=== PATIENT | female | born 1970 | race Caucasian/White ===

== ENCOUNTER → 2019-09-13 16:20 | Outpatient (CLI) | payer OTHER, SELFPAY | DX: Z23 Encounter for immunization (principal) | CPT/HCPCS: 90471; 90686 ==

== ENCOUNTER → 2022-07-26 16:41 | Outpatient (CLI) | payer OTHER, MEDICAID, SELFPAY | PROVIDERS: Referring Provider Internal Medicine; Visit Provider Internal Medicine | DX: Z23 Encounter for immunization (principal) | CPT/HCPCS: 90471; 90686 ==

== ENCOUNTER → 2023-05-14 15:14 | Outpatient (CLI) | payer OTHER, MEDICAID, SELFPAY ==
[2023-05-14 15:50] LABS: Add Manual Diff / Slide Review NO; Basophils Absolute Auto 0 /uL (0-100); Basophils Percent Auto 0.9 % (0-2); Eosinophils Absolute Auto 100 /uL (0-450); Eosinophils Percent Auto 1.6 % (2-4); Hematocrit 40.5 % (36-46); Hemoglobin 13.7 g/dL (12.0-16.0); Lymphocytes Absolute Auto 1400 /uL (1100-4500); Lymphocytes Percent Auto 29.2 % (25-40); Mean Corpuscular HGB Conc 33.7 % (30-36); Mean Corpuscular Hemoglobin 27.5 PG (26-34); Mean Corpuscular Volume 81.4 fL (80-100); Monocytes Absolute Auto 400 /uL (0-900); Monocytes Percent Auto 8.7 % (3-14); Neutrophils Absolute Auto 2800 /uL (1500-7000); Neutrophils Percent Auto 59.6 % (50-75); Platelet Count 205 X10^3/uL (150-400); Red Blood Cell Count 4.98 X10^6/uL (4.0-5.2); Red Cell Distribution Width 14.5 % (11.6-14.8); White Blood Cell Count 4.7 X10^3/uL (4.5-11.0)
[2023-05-14 16:04] LABS: Alanine Aminotransferase 20 IU/L (<35); Albumin 4.5 g/dL (3.5-5.0); Albumin Globulin Ratio 1.3 (1.0-2.8); Alkaline Phosphatase 64 U/L (38-126); Aspartate Aminotransferase 29 IU/L (14-36); BUN Creatinine Ratio 14.6 (6-22); Bilirubin Total 0.5 mg/dL (0.2-1.3); Blood Urea Nitrogen 12 mg/dL (7-17); Calcium 9.2 mg/dL (8.4-10.2); Carbon Dioxide 32 mmol/L (22-32); Chloride 101 mmol/L (98-107); Estimated Glomerular Filt Rate > 60 mL/min (>60); Globulin 3.6 g/dL (1.7-4.1); Glucose 120 mg/dL (70-100); HEMOLYSIS < 15 (0-50); Potassium 3.9 mmol/L (3.4-5.1); Sodium 139 mmol/L (137-145); Total Protein 8.1 g/dL (6.3-8.2)
[2023-05-14 16:35] LABS: TSH w/ Reflex to FT4 2.94 uIU/mL (0.47-4.68)
[2023-05-15 02:57] LABS: Labcorp Hemoglobin (Hb) A1c 5.5 % (4.8-5.6)
== END ==
PROVIDERS: PCP Family Medicine; Referring Provider Family Medicine; Visit Provider Family Medicine
DX: R06.02 Shortness of breath (principal); R53.83 Other fatigue
CPT/HCPCS: 36415; 80053; 83036; 84443; 85025

== ENCOUNTER 2025-06-27 07:47 | Emergency (ER) | payer OTHER, SELFPAY ==
[2025-06-27] VITALS (10 sets, daily range): BP systolic 113–144; BP diastolic 64–84; PULSE 70–104; RESP 16; TEMP 36.7; O2SAT 88–99; BMI 23.5
[2025-06-27] MEDS: KETOROLAC 30 MG/ML VIAL 15 MG IV (10:37)
[2025-06-27 10:38] LABS: Add Manual Diff / Slide Review NO; Hematocrit 45.3 % (36-46); Hemoglobin 15.3 g/dL (12.0-16.0); Lymphocytes Absolute Auto 700 /uL (1100-4500); Mean Corpuscular HGB Conc 33.7 % (30-36); Mean Corpuscular Hemoglobin 27.4 PG (26-34); Mean Corpuscular Volume 81.5 fL (80-100); Platelet Count 267 X10^3/uL (150-400)
[2025-06-27 10:51] LABS: Alanine Aminotransferase 25 IU/L (<35); Albumin 5.1 g/dL (3.5-5.0); Albumin Globulin Ratio 1.2 (1.0-2.8); Alkaline Phosphatase 96 U/L (38-126); Blood Urea Nitrogen 9 mg/dL (7-17); Calcium 9.6 mg/dL (8.4-10.2); Carbon Dioxide 23 mmol/L (22-32); Chloride 103 mmol/L (98-107); Estimated Glomerular Filt Rate > 60 mL/min (>60); Globulin 4.2 g/dL (1.7-4.1); Glucose 124 mg/dL (70-99); HEMOLYSIS < 15 (0-50); Lipase 77 U/L (23-300); Potassium 3.8 mmol/L (3.4-5.1); Sodium 140 mmol/L (137-145); Total Protein 9.3 g/dL (6.3-8.2)
--- NOTE | 2025-06-27 11:04 | ED_ITS ---
HPI - Abdominal Pain General Chief Complaint: Urogenital-Female Stated Complaint: Rectal Bleeding, Possible kidney stone, back pain Time Seen by Provider: 06/27/25 09:55 Source: patient Mode of arrival: Ambulatory History of Present Illness HPI narrative: Patient is a 54-year-old female who does not go to doctors takes no medication presenting to day with ongoing back pain. She reports she has had chronic back pain she was supposed to have surgery in 2019 but declined. She has had kidney stones in the past she felt like she had some right-sided flank pain a couple of days ago she noticed dark urine she had no nausea or vomiting it was not radiating around to her stomach. She now has all across lower lumbar pain. She reports some constipation. She has had some blood-streaked stools ongoing for at least the last 6 months. She never had a colonoscopy refuses to get 1. She is not sure if she has hemorrhoids. She does not take anything at home for pain she did receive Toradol and reports no relief. She reports he has chronic ongoing pain in both of her legs it is not any worse she has no loss of bowel or urine. Related Data Home Medications ?Medication ?Instructions ?Recorded ?Confirmed No Known Home Medications 06/27/2506/13 Allergies Allergy/AdvReac Type Severity Reaction Status Date / Time No Known Drug Allergies Allergy Verified 06/27/25 07:45 Patient History Medical History Vitiligo Shoulder pain Chronic back pain Surgical History Anesthesia History of nephrolithotomy with removal of calculi (~07/2015) History of tubal ligation (~04/1993) Social History Smoking Status: Former smoker Smoking Status: Former smoker tobacco type: cigarettes Exam Initial Vital Signs Initial Vital Signs: Vital Signs Temperature 98.1 F 06/27/25 08:01 Pulse Rate 103 H 06/27/25 08:01 Respiratory Rate 16 06/27/25 08:01 Blood Pressure 138/71 06/27/25 08:01 Pulse Oximetry 98 06/27/25 08:01 Oxygen Delivery Method Room Air 06/27/25 08:01 GENERAL: Alert 54-year-old female sitting on edge of bed hunched over and in no acute distress. HEENT: Head atraumatic,EOMI, pupils reactive, face symmetric, moist mucous membranes CARDIOVASCULAR: Regular rate and rhythm without murmurs, rubs or gallops. RESPIRATORY: Breath sounds equal bilaterally, no wheezes rales or rhonchi. ABDOMEN: Soft, nontender. Normoactive bowel sounds all 4 quadrants. No guarding or rebound. BACK: No vertebral tenderness pain across lower lumbar area : No CVA tenderness RECTAL: Patient declined EXTREMITIES: Normal range of motion, no clubbing or edema. Neurovascularly intact NEUROLOGICAL: Alert and oriented x4.Normal gait and speech. SKIN: Warm, dry, no laceration, no petechiae, no rashes or lesions. Course Orders Ordered: ED Orders 06/27/25 09:39 Urine Microscopic Stat 06/27/25 10:20 CBC Auto Diff [Complete Blood Count AUTO DIFF] Stat CMP [Comprehensive Metabolic Panel] Stat Lipase Stat 06/27/25 11:13 CT abdomen pelvis w con Stat Discontinued Medications Hydromorphone HCl (Hydromorphone Hcl 0.5 Mg/0.5 Ml Syringe) 0.5 mg IV NOW ONE Stop: 06/27/25 11:14 Last Admin: 06/27/25 12:06 Dose: 0.5 mg Documented By: ES Ketorolac Tromethamine (Ketorolac 30 Mg/Ml Vial) 15 mg IV NOW ONE Stop: 06/27/25 09:56 Last Admin: 06/27/25 10:37 Dose: 15 mg Documented By: CLP Ondansetron HCl (Ondansetron 4 Mg/2 Ml Inj) 4 mg IV NOW PRN PRN Reason: Nausea And Vomiting Ondansetron HCl (Ondansetron 4 Mg Odt) 4 mg PO NOW PRN PRN Reason: Nausea And Vomiting Vital Signs Vital signs: Vital Signs - 8 hr 06/27/25 08:01 06/27/25 10:06 06/27/25 10:06 Temperature 98.1 F Pulse Rate 103 H 101 H Respiratory Rate 16 Blood Pressure 138/71 117/80 Pulse Oximetry 98 88 L Oxygen Delivery Method Room Air 06/27/25 10:30 06/27/25 10:30 06/27/25 11:00 Temperature Pulse Rate 104 H 96 H Respiratory Rate Blood Pressure 116/78 Pulse Oximetry 96 97 Oxygen Delivery Method 06/27/25 11:00 06/27/25 11:30 06/27/25 11:30 Temperature Pulse Rate 86 Respiratory Rate Blood Pressure 118/84 144/65 H Pulse Oximetry 97 Oxygen Delivery Method 06/27/25 11:51 06/27/25 11:51 06/27/25 12:00 Temperature Pulse Rate 84 Respiratory Rate Blood Pressure 138/76 113/73 Pulse Oximetry 99 Oxygen Delivery Method 06/27/25 12:00 06/27/25 12:30 06/27/25 12:30 Temperature Pulse Rate 89 81 Respiratory Rate Blood Pressure 120/64 Pulse Oximetry 97 98 Oxygen Delivery Method 06/27/25 13:00 06/27/25 13:00 06/27/25 13:30 Temperature Pulse Rate 76 70 Respiratory Rate Blood Pressure 120/76 Pulse Oximetry 98 93 Oxygen Delivery Method 06/27/25 13:30 Temperature Pulse Rate Respiratory Rate Blood Pressure 126/65 Pulse Oximetry Oxygen Delivery Method MDM - Abdominal Pain Lab Data 06/27/25 10:20 06/27/25 10:20 Labs: Lab Results 06/27/25 06/27/25 Range/Units 09:39 10:20 WBC 3.7 L (4.5-11.0) X10^3/uL RBC 5.56 H (4.0-5.2) X10^6/uL Hgb 15.3 (12.0-16.0) g/dL Hct 45.3 (36-46) % MCV 81.5 (80-100) fL MCH 27.4 (26-34) PG MCHC 33.7 (30-36) % RDW 14.0 (11.6-14.8) % Plt Count 267 (150-400) X10^3/uL Neut % (Auto) 69.6 (50-75) % Lymph % (Auto) 19.4 L (25-40) % [place] % (Auto) 9.4 (3-14) % Eos % (Auto) 0.6 L (2-4) % Baso % (Auto) 1.0 (0-2) % Neut # (Auto) 2600 (9711-0919) /uL Lymph # (Auto) 700 L (2253-4128) /uL [place] # (Auto) 300 (0-900) /uL Eos # (Auto) 0 (0-450) /uL Baso # (Auto) 0 (0-100) /uL Sodium 140 (137-145) mmol/L Potassium 3.8 (3.4-5.1) mmol/L Chloride 103 (98-107) mmol/L Carbon Dioxide 23 (22-32) mmol/L BUN 9 (7-17) mg/dL Creatinine 0.85 (0.52-1.04) mg/dL Estimated GFR > 60 (>60) mL/min BUN/Creatinine Ratio 10.6 (6-22) Glucose 124 H (70-99) mg/dL Calcium 9.6 (8.4-10.2) mg/dL Total Bilirubin 0.9 (0.2-1.3) mg/dL AST 29 (14-36) IU/L ALT 25 (<35) IU/L Alkaline Phosphatase 96 (38-126) U/L Total Protein 9.3 H (6.3-8.2) g/dL Albumin 5.1 H (3.5-5.0) g/dL Globulin 4.2 H (1.7-4.1) g/dL Albumin/Globulin Ratio 1.2 (1.0-2.8) Lipase 77 (23-300) U/L Urine RBC 0-1/hpf (0-5/HPF) Urine WBC 0-1/hpf (0-5/HPF) Ur Squamous Epith Cells 0-1 /hpf (0-5/HPF) Urine Bacteria Occasional (0-1) (None) Ur Culture Indicated? Cult not indicated Vol Urine Centrifuged 10ml (spun) Point of care testing: Point of Care Testing Test Results Negative Urine Dip Bedside Urine Glucose Negative Bedside Urine Bilirubin - Negative Bedside Urine Ketone + 15 Urine Specific [place] 1.010 Bedside Urine Occult Blood - Negative Bedside Urine pH 6.0 Bedside Urine Protein - Negative Bedside Urine Urobilinogen - Negative Bedside Urine Nitrite - Negative Bedside Urine Leukocytes - Negative Esterase Imaging Data CT scan - abdomen/pelvis: Radiologist's Impression: PROCEDURE: CT ABDOMEN PELVIS W CON INDICATIONS: right flank pain TECHNIQUE: After the administration of intravenous contrast, axial sections acquired from the lung bases to the pubic symphysis. Coronal and sagittal reformats were performed. For radiation dose reduction, the following was used: automated exposure control, adjustment of mA and/or kV according to patient size. COMPARISON: CT of abdomen and pelvis dated 09/01/2014. FINDINGS: Image quality: Diagnostic. Lower Chest: No significant findings. ABDOMEN: Liver: No solid mass. Gallbladder: Calcified stones are seen in dependent portion of gallbladder lumen. No gross gallbladder wall thickening. Biliary ducts: Prominent common bile duct measures up to 10 series 3, image 43. No definite calcified common bile duct stone is seen. mm in diameter proximally Pancreas: No ductal dilation. Spleen: Size is within normal limits. Adrenal Glands: No adrenal nodules. Kidneys and Ureters: No hydronephrosis. No solid mass. No complex renal cystic lesion which requires follow up. Stomach and Bowel: There is no bowel obstruction . For digestion of diffuse colonic wall thickening and distal ileal wall thickening. Appendix is not definitively identified. Sigmoid diverticulosis without CT evidence of acute diverticulitis. No abscess collection. Peritoneum: No abnormal intraperitoneal fluid. No free air. Ventral Wall: No significant ventral hernia. Abdominal Nodes: No retroperitoneal or mesenteric adenopathy by size criteria. Vessels: Aorta and inferior vena cava are normal in size. PELVIS: Pelvic Organs: Prominent bilateral gonadal vessels . Uterus and bilateral ovaries show no gross abnormalities. Bladder: No bladder wall thickening, accounting for underdistention. Pelvic Nodes: No enlarged lymph nodes. Miscellaneous: No inguinal hernias are seen. Bones: No aggressive osseous abnormality. IMPRESSION: 1. There is suggestion of distal ileal wall thickening and colonic wall thickening which may be due to under distension. Infectious or inflammatory enterocolitis cannot be excluded. No abscess collection. Sigmoid diverticulosis without CT evidence of acute diverticulitis. Appendix is not definitively identified. Developing acute appendicitis cannot be excluded. Clinical correlation is recommended. No free fluid or free air. 2. Cholelithiasis without CT evidence of acute cholecystitis. Prominence of common bile duct for patient's age, no obvious calcified common bile duct stone is seen. MRCP or ERCP can be done for further evaluation of this region. 3. Prominence of bilateral gonadal vessels which can be seen associated with clinical diagnosis of pelvic congestion syndrome. 4. No obstructing renal stones or hydronephrosis. Normal appearing partially distended urinary bladder. Dictated by: Scottie Plascencia M.D. on 06/27/2025 at 12:00 ECG Data Interpretation: MDM Narrative Medical decision making narrative: MDM CC: Back pain Complicating co-morbidities: Chronic back pain prior kidney stone Data collected from: Patient Medical records reviewed: PCP note from April 2023 is the last record Differential considered: Nephrolithiasis acute on chronic back pain low suspicion for cauda equina constipation colon cancer ulcerative colitis Crohn's disease hemorrhoid Exam documented above, pertinent findings include: No vertebral tenderness no flank pain abdomen is soft nontender Lab Test results independently reviewed as above. Pertinent findings: Mild leukopenia, WBC is 3.7 no anemia her hemoglobin is 15.3 hematocrit 45.3 platelets 267 CMP no electrolyte abnormality no EFRAIN Independently reviewed EKG as above Imaging studies independently reviewed: CT abdomen pelvis shows some distal ileal wall thickening can not exclude infectious or inflammatory colitis normal appendix cholelithiasis is noted but no acute cholecystitis Treatments: Toradol Dilaudid Re-evaluations: No pain relief after Toradol Discussion: 54-year-old female presenting today with ongoing back pain and chronic bloody stools. Bloody stools not any worse today. She is not anemic hemodynamically stable. CT shows if some ileal wall thickening strongly recommend outpatient colonoscopy or she does agree to. Abdomen is soft. She has chronic back pain no lower extremity weakness no concern for cauda equina. Urinalysis is negative no evidence of infection. She is nontender in the right upper quadrant she has hopefully lithiasis but not symptomatic at this time with normal liver enzymes and bilirubin Discharge Plan Departure Patient Disposition: Home Clinical Impression: Constipation Instructions: DI for Constipation Activity Restrictions/Additional Instructions: *You have been diagnosed with constipation *What to do: At this time I strongly encourage you to have a colonoscopy for further evaluation of your ongoing bloody stools. *Continue to take medications as directed MiraLax once daily to help with constipation *Follow up with your primary care provider in 2-3 days or call [phone] *Return to ER if you should have increasing abdominal pain back pain nausea vomiting or any new, worsening or concerning symptoms Prescriptions: No Action No Known Home Medications Referrals: Crow Rocha DO [Primary Care Provider, Family Practice] Stand Alone Forms: Patient Portal/API
--- NOTE | 2025-06-27 11:13 | DI.CT.S_ITS ---
PROCEDURE: CT ABDOMEN PELVIS W CON INDICATIONS: right flank pain TECHNIQUE: After the administration of intravenous contrast, axial sections acquired from the lung bases to the pubic symphysis. Coronal and sagittal reformats were performed. For radiation dose reduction, the following was used: automated exposure control, adjustment of mA and/or kV according to patient size. COMPARISON: CT of abdomen and pelvis dated 09/01/2014. FINDINGS: Image quality: Diagnostic. Lower Chest: No significant findings. ABDOMEN: Liver: No solid mass. Gallbladder: Calcified stones are seen in dependent portion of gallbladder lumen. No gross gallbladder wall thickening. Biliary ducts: Prominent common bile duct measures up to 10 series 3, image 43. No definite calcified common bile duct stone is seen. mm in diameter proximally Pancreas: No ductal dilation. Spleen: Size is within normal limits. Adrenal Glands: No adrenal nodules. Kidneys and Ureters: No hydronephrosis. No solid mass. No complex renal cystic lesion which requires follow up. Stomach and Bowel: There is no bowel obstruction . For digestion of diffuse colonic wall thickening and distal ileal wall thickening. Appendix is not definitively identified. Sigmoid diverticulosis without CT evidence of acute diverticulitis. No abscess collection. Peritoneum: No abnormal intraperitoneal fluid. No free air. Ventral Wall: No significant ventral hernia. Abdominal Nodes: No retroperitoneal or mesenteric adenopathy by size criteria. Vessels: Aorta and inferior vena cava are normal in size. PELVIS: Pelvic Organs: Prominent bilateral gonadal vessels . Uterus and bilateral ovaries show no gross abnormalities. Bladder: No bladder wall thickening, accounting for underdistention. Pelvic Nodes: No enlarged lymph nodes. Miscellaneous: No inguinal hernias are seen. Bones: No aggressive osseous abnormality. IMPRESSION: 1. There is suggestion of distal ileal wall thickening and colonic wall thickening which may be due to under distension. Infectious or inflammatory enterocolitis cannot be excluded. No abscess collection. Sigmoid diverticulosis without CT evidence of acute diverticulitis. Appendix is not definitively identified. Developing acute appendicitis cannot be excluded. Clinical correlation is recommended. No free fluid or free air. 2. Cholelithiasis without CT evidence of acute cholecystitis. Prominence of common bile duct for patient's age, no obvious calcified common bile duct stone is seen. MRCP or ERCP can be done for further evaluation of this region. 3. Prominence of bilateral gonadal vessels which can be seen associated with clinical diagnosis of pelvic congestion syndrome. 4. No obstructing renal stones or hydronephrosis. Normal appearing partially distended urinary bladder. Dictated by: Scottie Plascencia M.D. on 06/27/2025 at 12:00 Approved by: Scottie Plascencia M.D. on 06/27/2025 at 12:07
[2025-06-27 12:09] LABS: Culture Indicated Urine Cult Not Indicated
== END 2025-06-27 13:41 | disposition home or self-care (01) ==
PROVIDERS: Emergency Provider Emergency Medicine; PCP Family Medicine
DX: K59.00 Constipation, unspecified (principal); M54.50 Low back pain, unspecified; Z87.442 Personal history of urinary calculi
CPT/HCPCS: 36415; 74177; 80053; 81003; 81015; 81025; 83690; 85025; 96374; 96375; 99284; J1171; J1885; Q9967

== ENCOUNTER → 2025-07-01 13:00 | Outpatient (CLI) | payer OTHER, SELFPAY | PROVIDERS: PCP Family Medicine; Visit Provider Family Medicine | DX: R10.9 Unspecified abdominal pain (principal); R39.89 Other symptoms and signs involving the genitourinary system; K62.5 Hemorrhage of anus and rectum; K62.89 Other specified diseases of anus and rectum; K83.8 Other specified diseases of biliary tract | CPT/HCPCS: 87086 ==

== ENCOUNTER → 2025-07-01 13:37 | Outpatient (CLI) | payer OTHER, SELFPAY ==
--- NOTE | 2025-07-01 13:38 | DI.RAD.S_ITS ---
PROCEDURE: XR LUMBAR SPINE 2-3V INDICATIONS: low back apin TECHNIQUE: 3 views of the lumbar spine were acquired. COMPARISON: None. FINDINGS: Bones: Severe multilevel degenerative disc disease , most pronounced at L2-L3 and L1-L2. Vertebral body heights maintained. No fracture. No spondylolisthesis. Soft tissues: Overlying bowel gas pattern is normal. No suspicious soft tissue calcifications. IMPRESSION: Severe degenerative disc disease. Dictated by: James Kowalski M.D. on 07/01/2025 at 14:25 Approved by: James Kowalski M.D. on 07/01/2025 at 14:26
--- NOTE | 2025-07-01 13:38 | DI.RAD.S_ITS ---
PROCEDURE: XR HIP W PEL IF DONE LT 2V INDICATIONS: low back apin TECHNIQUE: AP view of the pelvis and lateral view of the left hip COMPARISON: None. FINDINGS: Bones: No fractures or dislocations. No suspicious bony lesions. The visualized pelvic ring appears intact. Soft tissues: No suspicious soft tissue calcifications or masses. IMPRESSION: No acute bony abnormality. Dictated by: James Kowalski M.D. on 07/01/2025 at 14:24 Approved by: James Kowalski M.D. on 07/01/2025 at 14:25
== END ==
PROVIDERS: PCP Family Medicine; Referring Provider Family Medicine; Visit Provider Family Medicine
DX: M51.360 Other intervertebral disc degeneration, lumbar region with discogenic back pain only (principal); K62.5 Hemorrhage of anus and rectum; M25.552 Pain in left hip; K83.8 Other specified diseases of biliary tract; K62.89 Other specified diseases of anus and rectum; R10.9 Unspecified abdominal pain; R39.89 Other symptoms and signs involving the genitourinary system
CPT/HCPCS: 72100; 73502; 87086

== ENCOUNTER → 2025-07-13 16:58 | Outpatient (CLI) | payer OTHER, SELFPAY ==
--- NOTE | 2025-07-13 16:59 | DI.MRI.S_ITS ---
PROCEDURE: MR LUMBAR SPINE WO CON INDICATIONS: lower back and hip pain TECHNIQUE: Noncontrast sagittal T1 spin echo and T2 fast echo, sagittal STIR, and T2 fast spin echo through the lumbar spine. In cases with scoliosis, additional coronal T2 fast spin echo may be performed. COMPARISON: None. FINDINGS: Image quality: Excellent. Alignment and Curvature: There is normal bony alignment. Bone Marrow: Degenerative endplate changes are present. Marrow is of normal overall signal. No acute vertebral body compression fractures. Spinal Cord: Conus medullaris terminates at the L1-L2 level. Visualized cord demonstrates normal signal and size. Paraspinous Soft Tissues: No paravertebral masses. T12-L1: Disc desiccation and mild disc bulge. No central canal or neural foraminal stenosis. L1-L2: Disc desiccation is severe height loss. Minimal disc bulge. Facet arthropathy. No central canal or neural foraminal stenosis. L2-L3: Disc desiccation and moderate height loss. Mild disc bulge. Facet arthropathy. No central canal stenosis. No significant neural foraminal stenosis. L3-L4: Disc desiccation and mild disc bulge. Facet arthropathy. No central canal stenosis. No significant neural foraminal stenosis. L4-L5: Disc desiccation and mild disc bulge with superimposed small central disc protrusion and posterior annular tear. No significant central canal or neural foraminal stenosis. L5-S1: Disc desiccation and mild disc bulge with posterior annular tear. No central canal stenosis. Mild left and no right neural foraminal stenosis. IMPRESSION: Mild multilevel degenerative changes of the lumbar spine as described above. Dictated by: Rogers Eaton M.D. on 07/14/2025 at 13:02 Approved by: Rgoers Eaton M.D. on 07/14/2025 at 13:07
== END ==
PROVIDERS: PCP Family Medicine; Referring Provider Family Medicine; Visit Provider Family Medicine
DX: M47.816 Spondylosis without myelopathy or radiculopathy, lumbar region (principal); M54.50 Low back pain, unspecified; M25.559 Pain in unspecified hip
CPT/HCPCS: 72148

== ENCOUNTER → 2025-07-15 16:46 | Outpatient (CLI) | payer OTHER, SELFPAY ==
--- NOTE | 2025-07-15 16:48 | DI.MRI.S_ITS ---
PROCEDURE: MR ABDOMEN WO CON INDICATIONS: Prominence of common bile duct for patient's age TECHNIQUE: Coronal HASTE through the abdomen, axial 2-D FLASH in- and [id number], and breath-hold T2 FSE with fat saturation through the biliary system and pancreas. Oblique coronal and axial thin-slice HASTE, radial thick-slab HASTE centered on the extrahepatic bile ducts. Intravenous secretin: Not requested. COMPARISON: [facility], CT, CT ABDOMEN PELVIS W CON, 06/27/2025, 11:47. FINDINGS: Image quality: Diagnostic. Gallbladder: Cholelithiasis with borderline focal wall thickening along the anterior margin . Trace pericholecystic fluid. Biliary ducts: Wall mild extrahepatic biliary dilation, measuring up to 9 millimeter. There is layering debris within the common bile duct (series 4, image 31). Pancreas: No ductal dilation. OTHER: Lung bases: Unremarkable. Liver: No solid mass. Spleen: Size is within normal limits. Adrenal Glands: No adrenal nodules. Kidneys and Ureters: No hydronephrosis. No solid mass. No complex renal cystic lesion which requires follow up. Stomach and Bowel: Normal colonic caliber, without significant wall thickening. Peritoneum: No abnormal intraperitoneal fluid. No free air. Ventral Wall: No hernia. Abdominal Nodes: No retroperitoneal or mesenteric adenopathy by size criteria. Vessels: Aorta and inferior vena cava are normal in size. Bones: No aggressive osseous abnormality. IMPRESSION: Cholelithiasis with focal gallbladder wall thickening along the anterior margin and trace pericholecystic edema. Findings raise a concern for acute cholecystitis. Correlate with right upper quadrant pain. Layering debris within the common bile duct, which is dilated up to 9 millimeter. This layering debris may represent small stones versus concentrated bile. Dictated by: Julito Betts M.D. on 07/18/2025 at 13:34 Approved by: Julito Betts M.D. on 07/18/2025 at 13:37
== END ==
LOC: MRI 16:47
PROVIDERS: PCP Family Medicine; Referring Provider Family Medicine; Visit Provider Family Medicine
DX: K83.8 Other specified diseases of biliary tract (principal); K80.20 Calculus of gallbladder without cholecystitis without obstruction; R10.84 Generalized abdominal pain; R93.89 Abnormal findings on diagnostic imaging of other specified body structures
CPT/HCPCS: 74181

== ENCOUNTER 2025-09-07 09:07 | Day surgery (SDC) | payer OTHER, SELFPAY ==
[2025-08-24 09:36] VITALS: BMI 24.9
[2025-09-07] VITALS (11 sets, daily range): BP systolic 111–158; BP diastolic 63–88; PULSE 74–102; RESP 11–23; TEMP 36.2–36.9; O2SAT 96–100
--- NOTE | 2025-09-07 | PATH_ITS ---
[facility] Accession Number: [id number] No. of containers..01 Tissue . 01 Material submitted: . gallbladder - GALLBLADDER, CHOLECYSTECTOMY . 01 Diagnosis: GALLBLADDER, CHOLECYSTECTOMY: Chronic cholecystitis with cholelithiasis. No dysplasia or malignancy identified. . [facility] 09/16/2025 152 Local . 01 Electronically signed: . Mark Mccarty MD, Pathologist NPI- [id number] . 01 Gross description: . Received in formalin with two patient identifiers, and gallbladder is a 10.2 x 3.5 x 3.4 cm intact gallbladder. The stapled cystic duct margin is inked blue. A lymph node is not grossly identified. The serosa is purple-brown and smooth with scattered pinpoint hemorrhage. The mucosa is green-tyson, velvety, and focally hemorrhagic. The wall is 0.3-0.6 cm thick. The lumen contains green, viscous bile. There are innumerable yellow-green, multifaceted calculi ranging from 0.5-2.3 cm. Ruby On Rails Engineer sections with cystic duct margin en face and gallbladder wall were submitted in A1. ([id number]) /MRV 09/16/2025 1526 Local . 01 Pathologist provided ICD-10: K80.10 . 01 CPT . 747550 Specimen Comment: A courtesy copy of this report has been sent to [phone] Performed at: [address] [id number] MD Mark Mccarty MD Phone: [phone]
--- NOTE | 2025-09-07 | DI.RAD.S_ITS ---
PROCEDURE: XR CHOLANGIOGRAM OPERATIVE INDICATIONS: Lap Luz Marina with IOC COMPARISON: None. FINDINGS: Biliary ducts: The surgeon injected contrast into the biliary ducts after cannulation of the cystic duct stump. Visualized intra- and extrahepatic bile ducts are normal in caliber, without strictures. No intraluminal filling defects to suggest retained ductal stones or sludge. No evidence for iatrogenic ductal injury. Duodenum: Contrast flows promptly through the sphincter of Oddi into the duodenum, which appears normal in caliber. IMPRESSION: Normal operative cholangiogram. Dictated by: Jose C Marie M.D. on 09/08/2025 at 10:01 Approved by: Jose C Marie M.D. on 09/08/2025 at 10:02
[2025-09-07] MEDS: ACETAMINOPHEN 325 MG TABLET 975 MG PO (09:33)
[2025-09-07] MEDS: LACTATED RINGERS 1,000 ML 42 ML IV (09:34)
[2025-09-07] MEDS: GABAPENTIN 300 MG CAPSULE PO (09:34)
[2025-09-07] MEDS: MELOXICAM 7.5 MG TABLET 15 MG PO (09:34)
[2025-09-07] MEDS: FAMOTIDINE 20 MG/2 ML VIAL IV (09:34)
[2025-09-07] MEDS: SCOPOLAMINE 1 PATCH TOP (09:34)
--- NOTE | 2025-09-07 10:12 | PM.HP.IH.1 ---
History of Present Illness History of Present Illness Date Patient Seen: 09/07/25 Time Patient Seen: 10:12 Chief complaint: [facility] [place]ative: Denisse is a 55-year-old woman who presented to the clinic in July with abdominal pain. She had a CT scan which showed cholelithiasis and a prominent common duct. She then had an MRCP which showed cholelithiasis and layering debris in the common duct which may represent small stones or thick bile. ON LICENSE OF [facility] Medical History Vitiligo Shoulder pain Chronic back pain Surgical History Anesthesia History of nephrolithotomy with removal of calculi (~07/2015) History of tubal ligation (~04/1993) Social History Smoking Status: Former smoker Meds Home Medications and Allergies Home Medications ?Medication ?Instructions ?Recorded ?Confirmed ?Type No Known Home Medications 08/04/25 09/07/25 History Allergies Allergy/AdvReac Type Severity Reaction Status Date / Time No Known Drug Allergies Allergy Verified 09/07/25 09:32 Exam Vital Signs (past 8 hours): - 09/07/25 09:53 Temperature 98.5 F Pulse Rate 80 Respiratory Rate 17 Blood Pressure 156/78 H Pulse Oximetry 98 Oxygen Delivery Method Room Air Oxygen Delivery Method Room Air Const General: No acute distress Assessment & Plan Assessment and plan (1) Cholelithiasis: Qualifiers: Cholelithiasis location: gallbladder and bile duct Cholecystitis presence: without cholecystitis Biliary obstruction: without biliary obstruction Qualified Code(s): K80.70 - Calculus of gallbladder and bile duct without cholecystitis without obstruction Status: Acute Plan Laparoscopic cholecystectomy with intra-operative cholangiogram with possible common duct exploration. If she has common duct stones that cannot be removed with common duct exploration we would have to arrange for ERCP at another facility. Time-Based Coding :: [TOTAL MINUTES] spent with patient and on the chart (including review of chart, obtaining history, exam, reviewing outside data, placing orders, documenting exam and treatment plan, and counseling patient) on [DATE]. 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
--- NOTE | 2025-09-07 10:45 | SUR.OPER ---
Supine on padded OR bed, head on pillow, right arm padded and tucked, left arm secured on padded arm board at <90 degrees abduction, legs uncrossed, safety belt at thigh, tape over blanket over lower legs. Footboard
--- NOTE | 2025-09-07 12:32 | PM.OP.1 ---
Operative Date/Time/Diagnoses Date of procedure: 09/07/25 Time of procedure: 12:32 Pre-op diagnosis: Symptomatic cholelithiasis Post-op diagnosis: other (Symptomatic cholelithiasis and choledocholithiasis) Procedure & Clinicians Procedure: Laparoscopic cholecystectomy with intraoperative cholangiogram Common bile duct exploration Same procedure(s) as scheduled: Yes Surgeon: Yassine Baptiste Assisted?: Yes Filler Shredder: Brian Ramos Anesthesia Type: General Operative Notes Findings: Nonobstructing distal common bile duct stone on cholangiogram Applied: none Estimated Blood Loss (mL): 12 Procedure in detail: The patient was given preoperative antibiotic. The patient was brought to the operating room, placed on the table in the supine position. General endotracheal anesthesia was induced. The abdomen was prepped and draped. A time-out was performed. We made a 1 cm infraumbilical incision. We dissected down to the base of the umbilical stalk using cautery. We grasped the umbilical stalk with a Sravanthi clamp to elevate the abdominal wall. We scored the fascia in the midline with cautery 1 cm. We pierced the peritoneum with a Peon clamp. The Leatha port was placed and the abdomen was insufflated to 15 mmHg. A 5 mm 30 degree laparoscopic was inserted. There was no evidence of any injury from the entry. Next, we placed 5 mm ports in the subxiphoid position and right upper quadrant at the midclavicular line and anterior axillary line. The patient was then positioned in reverse Trendelenburg and the table was tilted to the left. The gallbladder was grasped at the dome and retracted cephalad. The infundibulum was densely adherent to the duodenum. The duodenum was carefully dissected off the gallbladder using a combination of sharp and blunt dissection. We then dissected the cystic structures with a combination of hook cautery and blunt dissection. A cholangiogram was performed using the 6 Maltese ureteral catheter and the Ness clamp. The cholangiogram demonstrated some flow of contrast into the duodenum but there was a distal common duct filling defect. At this point we administered 1 mg of glucagon and waited 5 minutes. We flushed saline through the biliary tract and repeated the cholangiogram. There still appeared to be a filling defect in the distal common bile duct. The ureteral catheter was advanced under fluoroscopy to the distal common bile duct and would not easily pass into the duodenum. We then passed a 0.35 mm glidewire past the obstruction into the duodenum. The ureteral catheter was then advanced over the wire into the duodenum without resistance. The seemed to clear the obstruction. Finally a completion cholangiogram was performed which showed good flow into the duodenum with no common bile duct filling defects. We then placed hemoclips on the cystic duct and artery and divided the cystic duct and artery sharply between the clips. The infundibulum of the gallbladder was still very closely adherent to the hepatic duct and was carefully dissected away from the hepatic duct with blunt dissection. There was a lymph node that was dissected off the gallbladder and left with the bridger hepatis. The gallbladder was then dissected off the liver and placed in a specimen retrieval bag. We irrigated the right upper quadrant and all the aspirate returned clear. We then removed the 5 mm ports under direct vision we removed the [place] port. We then injected some local into the fascia and closed the fascia with 3 interrupted 0 Vicryl sutures. The skin incisions were closed with 4 Monocryl and Steri-Strips were applied. Band-Aids were applied over the Steri-Strips. Specimen: Gallbladder and contents Complications: none Post-operative Condition: stable Disposition: PACU
[2025-09-07] MEDS: ONDANSETRON 4 MG/2 ML INJ IV (13:05)
[2025-09-07] MEDS: KETOROLAC 30 MG/ML VIAL 15 MG IV (13:57)
[2025-09-07] MEDS: METOCLOPRAMIDE 10 MG/2 ML INJ IV (13:59)
[2025-09-07] MEDS: hydrOXYzine 50 MG/ML INJ 25 MG IM (14:00)
== END 2025-09-07 16:00 | disposition home or self-care (01) ==
PROVIDERS: PCP Family Medicine; Referring Provider Surgery; Visit Provider Surgery
PROC: 0FT44ZZ Resection of Gallbladder, Percutaneous Endoscopic Approach (ICD-10-PCS; CPT 47563; principal; 2025-09-07 10:45)
DX: K80.64 Calculus of gallbladder and bile duct with chronic cholecystitis without obstruction (principal); Z87.891 Personal history of nicotine dependence
CPT/HCPCS: 47564; 74300; J0689; J1100; J1171; J1885; J2250; J2405; J2704; J2765; J3010; J3410; J7120; Q9967

== ENCOUNTER 2025-09-20 18:58 | Emergency (ER) | payer OTHER, SELFPAY ==
[2025-09-20] VITALS (11 sets, daily range): BP systolic 119–158; BP diastolic 65–103; PULSE 87–134; RESP 13–24; TEMP 37.1; O2SAT 88–99; BMI 25.8
[2025-09-20] MEDS: MORPHINE 4 MG/ML INJ IV (19:42)
[2025-09-20] MEDS: SODIUM CHLORIDE 0.9% 1,000 ML 1000 ML IV (19:42)
[2025-09-20] MEDS: ONDANSETRON 4 MG/2 ML INJ IV (19:42)
[2025-09-20 19:55] LABS: Alanine Aminotransferase 20 IU/L (<35); Albumin 4.8 g/dL (3.5-5.0); Albumin Globulin Ratio 1.2 (1.0-2.8); Alkaline Phosphatase 95 U/L (38-126); Blood Urea Nitrogen 7 mg/dL (7-17); Calcium 9.4 mg/dL (8.4-10.2); Carbon Dioxide 25 mmol/L (22-32); Chloride 104 mmol/L (98-107); Estimated Glomerular Filt Rate > 60 mL/min (>60); Globulin 3.9 g/dL (1.7-4.1); Glucose 157 mg/dL (70-99); HEMOLYSIS < 15 (0-50); Lipase 127 U/L (23-300); Potassium 3.0 mmol/L (3.4-5.1); Sodium 140 mmol/L (137-145); Total Protein 8.7 g/dL (6.3-8.2)
[2025-09-20 19:56] LABS: Lactate (Lactic Acid) 1.8 mmol/L (0.7-2.1)
[2025-09-20 19:57] LABS: Add Manual Diff / Slide Review NO; Hematocrit 40.5 % (36-46); Hemoglobin 13.7 g/dL (12.0-16.0); Lymphocytes Absolute Auto 2900 /uL (1100-4500); Mean Corpuscular HGB Conc 33.8 % (30-36); Mean Corpuscular Hemoglobin 26.9 PG (26-34); Mean Corpuscular Volume 79.6 fL (80-100); Platelet Count 310 X10^3/uL (150-400)
--- NOTE | 2025-09-20 20:45 | ED.ABDPAIN ---
HPI - Abdominal Pain General Chief Complaint: Abdominal Pain Stated Complaint: post surgery, stomach pn, chills, infection? Time Seen by Provider: 09/20/25 19:19 Source: patient Mode of arrival: Ambulatory History of Present Illness HPI narrative: 55-year-old female patient with a history of anxiety/depression/PTSD, chronic back pain and intermittent lower leg problems with numbness and pain. She underwent laparoscopic cholecystectomy on 09/07/2025 and says that since then she has had ongoing intermittent abdominal pain chills, nausea and yellow diarrhea. She has follow up with General surgery in 2 days. Related Data Home Medications ?Medication ?Instructions ?Recorded ?Confirmed No Known Home Medications 08/04/25 09/08/25 Previous Rx's ?Medication ?Instructions ?Recorded hydrocodone 5 mg-acetaminophen 325 1 tab PO Q8H PRN pain #10 tabs 09/07/25 mg tablet Allergies Allergy/AdvReac Type Severity Reaction Status Date / Time No Known Drug Allergies Allergy Verified 09/20/25 19:23 Review of Systems Review of Systems ROS Unobtainable: All systems reviewed & are unremarkable except as noted in HPI and below Gastrointestinal Gastrointestinal: Reports as per HPI Psychiatric Psychiatric: Reports as per HPI Patient History Medical History (Updated 09/20/25 @ 20:56 by Ari Chen MD) Vitiligo Chronic back pain Surgical History Anesthesia History of nephrolithotomy with removal of calculi (~07/2015) History of tubal ligation (~04/1993) tobacco type: cigarettes Exam Narrative Exam Narrative: General: Alert and conversant. [id number] distress. Appears well nourished and well hydrated Craniofacial: No evidence of trauma. Nontender and no swelling. Eyes: PERRLA EOMI conjunctiva clear HEENT: Tragus, pinnae nontender. Tympanic membranes normal appearance. Oropharynx clear with no swelling, exudate or asymmetry of the pharynx. Nares clear. No sinus tenderness Neck: No tenderness or adenopathy. No meningismus. No JVD Lungs: Clear to auscultation with good air movement. No wheezing, rales or rhonchi. No respiratory distress Cardiac: Tachycardia with regular rhythm and with no appreciable murmur or gallop Abdomen: Soft, mild diffuse tenderness with no rebound or guarding. With no distention or masses. Normal bowel sounds. Musculoskeletal: Exam of the extremities, axial spine and ribcage reveals no deformity, bony tenderness or swelling. Range of motion intact Neuro: Alert and oriented. Cranial nerves, motor, sensory and cerebellar all grossly intact. No focal deficit Skin: Warm and normal color. No rashes Psychological: Normal affect and interaction. No evidence of delusion or psychosis. Normal mood. Initial Vital Signs Initial Vital Signs: Vital Signs Temperature 98.8 F 09/20/25 19:16 Pulse Rate 134 H 09/20/25 19:16 Respiratory Rate 20 09/20/25 19:16 Blood Pressure 156/103 H 09/20/25 19:16 Pulse Oximetry 98 09/20/25 19:16 Oxygen Delivery Method Room Air 09/20/25 19:16 Course Orders Ordered: ED Orders 09/20/25 19:30 CBC Auto Diff [Complete Blood Count AUTO DIFF] Stat CMP [Comprehensive Metabolic Panel] Stat Lactate (Lactic Acid) Stat Lipase Stat 09/20/25 20:30 Urinalysis and Microscopic Stat Discontinued Medications Hydrocodone Bitart/Acetaminophen (Hydrocodone/Acet 5/325 Prepack) 1 bottle MISC DIRECTED ONE Stop: 09/20/25 20:55 Last Admin: 09/20/25 21:25 Dose: 1 bottle Documented By: ANA Sodium Chloride (Normal Saline 0.9%) 1,000 mls @ 1,000 mls/hr IV BOLUS ONE Stop: 09/20/25 20:22 Last Infusion: 09/20/25 21:10 Dose: Infused Documented By: Admin: 09/20/25 19:42 Dose: 1,000 mls/hr Documented By: SHAKIRA Morphine Sulfate (Morphine 4 Mg/Ml Inj) 4 mg IV NOW ONE Stop: 09/20/25 19:37 Last Admin: 09/20/25 19:42 Dose: 4 mg Documented By: SHAKIRA Ondansetron HCl (Ondansetron 4 Mg/2 Ml Inj) 4 mg IV NOW ONE Stop: 09/20/25 19:24 Last Admin: 09/20/25 19:42 Dose: 4 mg Documented By: SHAKIRA Vital Signs Vital signs: Vital Signs - 8 hr 09/20/25 19:16 09/20/25 19:26 09/20/25 19:30 Temperature 98.8 F Pulse Rate 134 H 103 H 103 H Respiratory Rate 20 14 21 Blood Pressure 156/103 H Pulse Oximetry 98 98 97 Oxygen Delivery Method Room Air 09/20/25 19:40 09/20/25 19:40 09/20/25 20:00 Temperature Pulse Rate 117 H 100 H Respiratory Rate 16 18 Blood Pressure 158/74 H Pulse Oximetry 96 99 Oxygen Delivery Method 09/20/25 20:00 09/20/25 20:30 09/20/25 20:32 Temperature Pulse Rate 110 H 101 H Respiratory Rate 13 Blood Pressure 134/65 Pulse Oximetry 96 97 Oxygen Delivery Method 09/20/25 20:32 09/20/25 20:36 09/20/25 20:36 Temperature Pulse Rate 99 H Respiratory Rate 24 Blood Pressure 136/72 119/77 Pulse Oximetry 96 Oxygen Delivery Method 09/20/25 21:00 09/20/25 21:00 09/20/25 21:10 Temperature Pulse Rate 87 Respiratory Rate 22 Blood Pressure 129/75 Pulse Oximetry 93 88 L Oxygen Delivery Method Room Air Room Air 09/20/25 21:27 Temperature Pulse Rate 105 H Respiratory Rate 22 Blood Pressure 129/75 Pulse Oximetry 98 Oxygen Delivery Method Room Air MDM - Abdominal Pain Lab Data Attestation: I reviewed the patient's lab results. Lab results narrative: CBC and CMP unremarkable other than potassium 3.0. 09/20/25 19:30 09/20/25 19:30 Labs: Lab Results 09/20/25 09/20/25 Range/Units 19:30 20:30 WBC 7.0 (4.5-11.0) X10^3/uL RBC 5.09 (4.0-5.2) X10^6/uL Hgb 13.7 (12.0-16.0) g/dL Hct 40.5 (36-46) % MCV 79.6 L (80-100) fL MCH 26.9 (26-34) PG MCHC 33.8 (30-36) % RDW 14.1 (11.6-14.8) % Plt Count 310 (150-400) X10^3/uL Neut % (Auto) 41.7 L (50-75) % Lymph % (Auto) 41.4 H (25-40) % [place] % (Auto) 11.2 (3-14) % Eos % (Auto) 4.6 H (2-4) % Baso % (Auto) 1.1 (0-2) % Neut # (Auto) 2900 (6755-9890) /uL Lymph # (Auto) 2900 (9295-0272) /uL [place] # (Auto) 800 (0-900) /uL Eos # (Auto) 300 (0-450) /uL Baso # (Auto) 100 (0-100) /uL Sodium 140 (137-145) mmol/L Potassium 3.0 L (3.4-5.1) mmol/L Chloride 104 (98-107) mmol/L Carbon Dioxide 25 (22-32) mmol/L BUN 7 (7-17) mg/dL Creatinine 0.86 (0.52-1.04) mg/dL Estimated GFR > 60 (>60) mL/min BUN/Creatinine Ratio 8.1 (6-22) Glucose 157 H (70-99) mg/dL Lactate 1.8 (0.7-2.1) mmol/L Calcium 9.4 (8.4-10.2) mg/dL Total Bilirubin 0.4 (0.2-1.3) mg/dL AST 22 (14-36) IU/L ALT 20 (<35) IU/L Alkaline Phosphatase 95 (38-126) U/L Total Protein 8.7 H (6.3-8.2) g/dL Albumin 4.8 (3.5-5.0) g/dL Globulin 3.9 (1.7-4.1) g/dL Albumin/Globulin Ratio 1.2 (1.0-2.8) Lipase 127 (23-300) U/L Urine Color Yellow Urine Appearance Clear Urine pH 5.5 (4.5-8.0) Ur Specific [place] <=1.005 (1.000-1.035) Urine Protein Negative (Negative) Urine Glucose (UA) Negative (Negative) g/dL Urine Ketones Negative (NEGATIVE) Urine Occult Blood Negative (Negative) Urine Nitrate Negative (Negative) Urine Bilirubin Negative (NEGATIVE) Urine Urobilinogen 0.2 (0.2) E.U./dL Ur Leukocyte Esterase Negative (NEGATIVE) Urine RBC None seen (0-5/HPF) Urine WBC 0-1/hpf (0-5/HPF) Ur Squamous Epith Cells 0-1 /hpf (0-5/HPF) Urine Bacteria Occasional (0-1) (None) Ur Culture Indicated? Cult not indicated Vol Urine Centrifuged 10ml (spun) MDM Narrative Medical decision making narrative: Patient has postoperative abdominal discomfort off and on for 2 weeks but has not seen her physician. She came in tachycardic and anxious it is improved with IV fluids and pain medication. Lab work is unremarkable and her exam had a soft abdomen with no rebound or guarding. I do not believe she needs imaging based on exam and lab work. I believe that is some of her symptoms are exacerbated or aggravated by her underlying anxiety. She has improved in the ER. I was willing to give her a take-home pack of hydrocodone. She is instructed to hydrate and monitor symptoms and follow up with her surgeon which will be in 2 days. Return to the ER if worse. Discharge Plan Departure Patient Disposition: Home Clinical Impression: Postoperative abdominal pain, Anxiety Instructions: DI for Abdominal Pain-Adult, DI for Laparoscopic Cholecystectomy Activity Restrictions/Additional Instructions: Plan: Hydration, rest and supportive care with [id number] and prescription pain medicine as needed. Stress and anxiety reduction techniques. Follow up with your surgeon as scheduled. Return to the ER if worse. Prescriptions: No Action No Known Home Medications hydrocodone-acetaminophen 5-325 mg tablet 1 tab PO Q8H PRN (Reason: pain) Qty: 10 0RF Referrals: Shelley Johnson MD [Primary Care Provider, Family Practice] Stand Alone Forms: Patient Portal/API
[2025-09-20 21:31] LABS: Appearance Urine UA CLEAR; Bilirubin Urine UA NEGATIVE (NEGATIVE); Color Urine UA YELLOW; Glucose Urine UA NEGATIVE (Negative); Ketones Urine UA NEGATIVE (NEGATIVE); Leukocyte Esterase Urine UA NEGATIVE (NEGATIVE); Nitrite Urine UA NEGATIVE (Negative); Occult Blood Urine UA NEGATIVE (Negative); Protein Urine UA NEGATIVE (Negative); Specific Gravity Urine UA <=1.005 (1.000-1.035); Urobilinogen Urine UA 0.2 E.U./dL (0.2); pH Urine UA 5.5 (4.5-8.0)
[2025-09-20 21:38] LABS: Culture Indicated Urine Cult Not Indicated
--- NOTE | 2025-09-20 21:43 | PC.NURSE ---
0 Patient reports 10 pain, provider Gustavo aware, no new orders at this time.
== END 2025-09-20 21:29 | disposition home or self-care (01) ==
PROVIDERS: Emergency Provider Emergency Medicine; PCP Family Medicine
DX: R10.9 Unspecified abdominal pain (principal); G89.18 Other acute postprocedural pain; F41.9 Anxiety disorder, unspecified; R00.0 Tachycardia, unspecified; R19.7 Diarrhea, unspecified; R11.0 Nausea; R68.83 Chills (without fever)
CPT/HCPCS: 36415; 80053; 81001; 83605; 83690; 85025; 96374; 96375; 99284; J2272; J2405; J7030

== ENCOUNTER 2025-10-11 09:17 | Emergency (ER) | payer OTHER, SELFPAY ==
[2025-10-11 09:17] VITALS: BP 146/68; PULSE 78; RESP 14; TEMP 36.7; O2SAT 99; BMI 23.6
[2025-10-11 09:21] VITALS: BP 146/68; PULSE 89; O2SAT 99
--- NOTE | 2025-10-11 09:23 | ED.GENADULT ---
HPI - General Adult General Chief complaint: Abdominal Pain Stated complaint: stomach px, surgery a month ago Time Seen by Provider: 10/11/25 09:23 Source: RN notes reviewed and old records reviewed Mode of arrival: Ambulatory Limitations: no limitations History of Present Illness HPI narrative: 55-year-old female history of prior cholecystectomy proximally a month ago patient states since then she has had periumbilical pain sometimes right flank lower abdominal pain that has been intermittent. She states nothing seems to be clearly causing her symptoms. She denies fevers or chills. No nausea or vomiting. States she has had normal bowel movements no black or bloody stools. No dysuria urgency or frequency. No vaginal bleeding or discharge. She states she she saw Dr. Baptiste today and her follow up appointment for her surgery and was told to come to the ER since she is having persistent symptoms. Patient does not take any daily medications. Patient has not taken anything for pain today. She denies any drug allergies. Former smoker, no regular alcohol, no recreational drugs. Related Data Home Medications ?Medication ?Instructions ?Recorded ?Confirmed methylprednisolone 4 mg tablets in 0 mg PO 10/11/25 10/11/25 a dose pack Previous Rx's ?Medication ?Instructions ?Recorded methocarbamol 500 mg tablet 500 mg PO TID PRN muscle spasm #30 09/22/25 tabs hydrocodone 5 mg-acetaminophen 325 1 tab PO Q6H PRN pain #7 tabs 10/11/25 mg tablet Allergies Allergy/AdvReac Type Severity Reaction Status Date / Time No Known Drug Allergies Allergy Verified 10/11/25 09:37 Review of Systems Review of Systems ROS Unobtainable: All systems reviewed & are unremarkable except as noted in HPI and below Patient History Medical History Vitiligo Chronic back pain Surgical History History of cholecystectomy Anesthesia History of nephrolithotomy with removal of calculi (~07/2015) History of tubal ligation (~04/1993) tobacco type: cigarettes Exam Narrative Exam Narrative: GENERAL: Alert and oriented x three, female in mild distress HEENT: Head normocephalic, atraumatic, EOMI, pupils reactive, face symmetric, moist mucous membranes NECK: Supple, full range of motion CARDIOVASCULAR: Regular rate and rhythm without murmurs, rubs or gallops. RESPIRATORY: Breath sounds equal bilaterally, no wheezes rales or rhonchi. ABDOMEN: Soft, nontender. Nondistended. Normoactive bowel sounds all 4 quadrants. No guarding or rebound, rigidity, no mass : No CVA tenderness bilaterally EXTREMITIES: Normal range of motion, no clubbing or edema. Neurovascularly intact NEUROLOGICAL: Cranial nerves II through XII grossly intact. Moving all extremities SKIN: Warm, dry, no petechiae, no rashes or lesions. Initial Vital Signs Initial Vital Signs: Vital Signs Temperature 98.1 F 10/11/25 09:17 Pulse Rate 78 10/11/25 09:17 Respiratory Rate 14 10/11/25 09:17 Blood Pressure 146/68 H 10/11/25 09:17 Pulse Oximetry 99 10/11/25 09:17 Oxygen Delivery Method Room Air 10/11/25 09:17 Course Orders Ordered: Discontinued Medications Hydrocodone Bitart/Acetaminophen (Hydrocodone/Acet 5/325 Tablet) 2 tab PO NOW ONE Stop: 10/11/25 12:11 Last Admin: 10/11/25 12:40 Dose: 1 tab Documented By: ELIZABETH Ketorolac Tromethamine (Ketorolac 30 Mg/Ml Vial) 15 mg IV NOW ONE Stop: 10/11/25 09:28 Last Admin: 10/11/25 09:48 Dose: 15 mg Documented By: RONALD Ketorolac Tromethamine (Ketorolac 30 Mg/Ml Vial) 15 mg IV NOW ONE Stop: 10/11/25 12:10 Ondansetron HCl (Ondansetron 4 Mg/2 Ml Inj) 4 mg IV NOW ONE Stop: 10/11/25 09:28 Last Admin: 10/11/25 12:20 Dose: Not Given Documented By: ELIZABETH Vital Signs Vital signs: Vital Signs - 8 hr 10/11/25 09:17 10/11/25 09:21 10/11/25 09:21 Temperature 98.1 F Pulse Rate 78 89 Respiratory Rate 14 Blood Pressure 146/68 H 146/68 H Pulse Oximetry 99 99 Oxygen Delivery Method Room Air Medical Decision Making Lab Data 10/11/25 09:25 10/11/25 09:25 Labs: Lab Results 10/11/25 Range/Units 09:25 WBC 7.2 (4.5-11.0) X10^3/uL RBC 5.36 H (4.0-5.2) X10^6/uL Hgb 14.5 (12.0-16.0) g/dL Hct 43.3 (36-46) % MCV 80.8 (80-100) fL MCH 27.0 (26-34) PG MCHC 33.4 (30-36) % RDW 14.9 H (11.6-14.8) % Plt Count 249 (150-400) X10^3/uL Neut % (Auto) 57.5 (50-75) % Lymph % (Auto) 30.6 (25-40) % [place] % (Auto) 10.1 (3-14) % Eos % (Auto) 1.4 L (2-4) % Baso % (Auto) 0.4 (0-2) % Neut # (Auto) 4200 (4041-0078) /uL Lymph # (Auto) 2200 (0678-8796) /uL [place] # (Auto) 700 (0-900) /uL Eos # (Auto) 100 (0-450) /uL Baso # (Auto) 0 (0-100) /uL Sodium 140 (137-145) mmol/L Potassium 3.4 (3.4-5.1) mmol/L Chloride 104 (98-107) mmol/L Carbon Dioxide 27 (22-32) mmol/L BUN 12 (7-17) mg/dL Creatinine 0.94 (0.52-1.04) mg/dL Estimated GFR > 60 (>60) mL/min BUN/Creatinine Ratio 12.8 (6-22) Glucose 100 H (70-99) mg/dL Calcium 9.4 (8.4-10.2) mg/dL Total Bilirubin 0.3 (0.2-1.3) mg/dL AST 22 (14-36) IU/L ALT 23 (<35) IU/L Alkaline Phosphatase 84 (38-126) U/L Total Protein 8.9 H (6.3-8.2) g/dL Albumin 5.0 (3.5-5.0) g/dL Globulin 3.9 (1.7-4.1) g/dL Albumin/Globulin Ratio 1.3 (1.0-2.8) Lipase 142 (23-300) U/L Urine Dip Bedside Urine Glucose Negative Bedside Urine Bilirubin - Negative Bedside Urine Ketone - Negative Urine Specific [place] 1.005 Bedside Urine Occult Blood - Negative Bedside Urine pH 6.5 Bedside Urine Protein - Negative Bedside Urine Urobilinogen - Negative Bedside Urine Nitrite - Negative Bedside Urine Leukocytes - Negative Esterase Point of care testing: Urine Dip Bedside Urine Glucose Negative Bedside Urine Bilirubin - Negative Bedside Urine Ketone - Negative Urine Specific [place] 1.005 Bedside Urine Occult Blood - Negative Bedside Urine pH 6.5 Bedside Urine Protein - Negative Bedside Urine Urobilinogen - Negative Bedside Urine Nitrite - Negative Bedside Urine Leukocytes - Negative Esterase MDM Narrative Medical decision making narrative: Labs show white count of 7.2 hemoglobin 14.5 platelets of 249, chemistries are appropriate BUN and creatinine normal glucose is 100 LFTs are normal total protein is 8.9. Point of care urine is negative CT abdomen shows some right-sided renal pelvic stasis and mild right hydroureter no evidence of distal obstructing stone or mass lesion, no significant while and has been or perinephric/periureteral stranding. Findings may represent sequela from recently passed stone. Normal appendix. No other chronic/nonacute findings as above. CT does show fat containing umbilical hernia without acute inflammation. She has a normal appendix. Discussed with the patient we will have her follow up with Urology for evaluation she has had chronic pain for about a month she is noted to have a fat containing umbilical hernia without acute inflammation. Discussed findings with the patient also has a return to Dr. Baptiste recurrent periumbilical hernia if she wishes for repair. Discharge Plan Departure Patient Disposition: Home Clinical Impression: Hydroureter on right, Hernia, umbilical Instructions: Abdominal Hernia Activity Restrictions/Additional Instructions: Your workup today does show an umbilical hernia with some fat in it this could cause some discomfort of the umbilical area. There is no bowel noted within the hernia itself. Incidentally it is noted that you have some mild right-sided renal pelviectasis and mild right hydroureter or swelling, I would recommend that you follow up with Urology for further evaluation. Contacts included below. If you are having a lot of pain with the umbilical hernia you can talk with your surgeon about having surgical repair. You can take Tylenol up to a 1000 mg every 6 hours and/or ibuprofen up to 600 mg every 6 hours needed for pain. If inadequate for pain you can take [place] 1-2 tablets every 6 hours as needed. This medication can make you sleepy do not drive, perform hazardous activities or make any major decisions while taking it. This medication will make you constipated please take a stool softener once to twice daily until stools are soft and regular. Prescription sent to [facility] Please return if you have new or worsening pain, fevers, vomiting, new changes to urination difficulty with urination, black or bloody stools or other new or concerning changes. Prescriptions: New hydrocodone-acetaminophen 5-325 mg tablet 1 tab PO Q6H PRN (Reason: pain) Qty: 7 0RF No Action methylprednisolone 4 mg tablets,dose pack 0 mg PO methocarbamol 500 mg tablet 500 mg PO TID PRN (Reason: muscle spasm) Qty: 30 0RF Referrals: Nima Greer DO [Physician, Urology] Yassine Baptiste MD [Physician, General Surgery] Shelley Johnson MD [Primary Care Provider, Family Practice] Stand Alone Forms: Patient Portal/API
--- NOTE | 2025-10-11 09:28 | DI.CT.S_ITS ---
PROCEDURE: CT ABDOMEN PELVIS W CON INDICATIONS: post cholecystectomy, persistent abd pain TECHNIQUE: After the administration of intravenous contrast, axial sections acquired from the lung bases to the pubic symphysis. Coronal and sagittal reformats were performed. For radiation dose reduction, the following was used: automated exposure control, adjustment of mA and/or kV according to patient size. COMPARISON: [facility], CT, CT ABDOMEN PELVIS W CON, 06/27/2025, 11:47. FINDINGS: Image quality: Diagnostic. Lower Chest: No significant findings. ABDOMEN: Liver: No solid mass. Gallbladder: Status post cholecystectomy. Biliary ducts: No biliary dilation. Pancreas: No ductal dilation. Spleen: Size is within normal limits. Adrenal Glands: No adrenal nodules. Kidneys and Ureters: There is mild right-sided renal pelviectasis and mild distension of the proximal right ureter. No significant wall thickening or abnormal enhancement of the ureter. No definite obstructing stone. No soft tissue mass seen. Multiple pelvic phleboliths visualized adjacent to the distal right ureter, stable in appearance. No significant perinephric stranding. No left-sided hydronephrosis. No solid mass. No complex renal cystic lesion which requires follow up. Stomach and Bowel: Normal colonic caliber, without significant wall thickening. No evidence for small bowel obstruction or associated inflammatory changes. Normal appendix. Peritoneum: No abnormal intraperitoneal fluid. No free air. Ventral Wall: There is a fat-containing umbilical hernia without acute inflammation. Abdominal Nodes: No retroperitoneal or mesenteric adenopathy by size criteria. Vessels: Scattered atherosclerotic calcifications of the abdominal aorta and iliac vessels without aneurysmal dilatation. The inferior vena cava appears patent. PELVIS: Pelvic Organs: Unremarkable. Bladder: No bladder wall thickening, accounting for underdistention. Pelvic Nodes: No enlarged lymph nodes. Miscellaneous: No inguinal hernias are seen. Bones: No aggressive osseous abnormality. Visualized osseous structures appear intact without acute fracture or focal destructive lesion. No acute compression fractures of the imaged spine. Multilevel spondylosis of the imaged spine. IMPRESSION: Mild right-sided renal pelviectasis and mild right hydroureter. No evidence for distal obstructing stone or mass lesion. No significant wall enhancement or perinephric/periureteral stranding. Findings may represent sequela from a recently passed stone. Normal appendix. Other chronic/non-acute findings as above. Dictated by: Luiz Fields M.D. on 10/11/2025 at 10:05 Approved by: Luiz Fields M.D. on 10/11/2025 at 10:14
[2025-10-11 09:34] LABS: Add Manual Diff / Slide Review NO; Hematocrit 43.3 % (36-46); Hemoglobin 14.5 g/dL (12.0-16.0); Lymphocytes Absolute Auto 2200 /uL (1100-4500); Mean Corpuscular HGB Conc 33.4 % (30-36); Mean Corpuscular Hemoglobin 27.0 PG (26-34); Mean Corpuscular Volume 80.8 fL (80-100); Platelet Count 249 X10^3/uL (150-400)
[2025-10-11] MEDS: KETOROLAC 30 MG/ML VIAL 15 MG IV (09:48)
[2025-10-11 09:51] LABS: Alanine Aminotransferase 23 IU/L (<35); Albumin 5.0 g/dL (3.5-5.0); Albumin Globulin Ratio 1.3 (1.0-2.8); Alkaline Phosphatase 84 U/L (38-126); Blood Urea Nitrogen 12 mg/dL (7-17); Calcium 9.4 mg/dL (8.4-10.2); Carbon Dioxide 27 mmol/L (22-32); Chloride 104 mmol/L (98-107); Estimated Glomerular Filt Rate > 60 mL/min (>60); Globulin 3.9 g/dL (1.7-4.1); Glucose 100 mg/dL (70-99); HEMOLYSIS < 15 (0-50); Lipase 142 U/L (23-300); Potassium 3.4 mmol/L (3.4-5.1); Sodium 140 mmol/L (137-145); Total Protein 8.9 g/dL (6.3-8.2)
[2025-10-11 12:09] VITALS: BP 139/83; PULSE 72; O2SAT 98
== END 2025-10-11 12:43 | disposition home or self-care (01) ==
PROVIDERS: Emergency Provider Emergency Medicine; PCP Family Medicine
DX: N13.4 Hydroureter (principal); K42.9 Umbilical hernia without obstruction or gangrene; R10.A1 Flank pain, right side; Z87.891 Personal history of nicotine dependence
CPT/HCPCS: 36415; 74177; 80053; 81003; 83690; 85025; 96374; 99284; J1885; Q9967